=== PATIENT | male | born 1955 | race Hispanic/Latino ===

== ENCOUNTER → 2022-08-21 | Outpatient (CLI) | payer MEDICARE, OTHER | END | disposition home or self-care (01) | LOC: RAH 09:32 | PROVIDERS: ATTEND Internal Medicine | DX: K76.89 Other specified diseases of liver (principal); R10.9 Unspecified abdominal pain | CPT/HCPCS: 74021; 76700 ==

== ENCOUNTER → 2022-12-04 | Outpatient (CLI) | payer MEDICARE, OTHER | END | disposition home or self-care (01) | LOC: RAH 10:18 | PROVIDERS: ATTEND Radiology Diagnostic Radiology | DX: M47.815 Spondylosis without myelopathy or radiculopathy, thoracolumbar region (principal); R05.9 Cough, unspecified | CPT/HCPCS: 71046 ==

== ENCOUNTER → 2023-09-20 | Outpatient (CLI) | payer MEDICARE, OTHER | END | disposition home or self-care (01) | LOC: RAH 14:10 | PROVIDERS: ATTEND Internal Medicine | DX: M17.12 Unilateral primary osteoarthritis, left knee (principal); M19.072 Primary osteoarthritis, left ankle and foot; M25.562 Pain in left knee; M25.572 Pain in left ankle and joints of left foot | CPT/HCPCS: 73562; 73610 ==